=== PATIENT | male | born 1960 | race Caucasian/White ===

== ENCOUNTER 2024-03-18 08:42 | Inpatient (IN) | payer MEDICAID ==
[2024-03-17 18:00] VITALS: BP 133/67; PULSE 120; RESP 25; TEMP 97.5; O2SAT 92
[2024-03-18] VITALS (11 sets, daily range): BP systolic 116–133; BP diastolic 56–67; PULSE 108–129; RESP 18–36; TEMP 97.5–99; O2SAT 2–96
[~2024-03-18] VITALS: Ht 172.7 cm; Wt 100.0 kg
[2024-03-18 09:25] LABS: BASOPHILS % (AUTO) 0.3 % (0-1); EOSINOPHILS % (AUTO) 0 % (0-6); HEMATOCRIT 47.9 % (42.0-52.0); HEMOGLOBIN 15.8 g/dl (14.0-17.9); LYMPHOCYTES # (AUTO) 0.7 X10'3 (1.1-4.8); LYMPHOCYTES % (AUTO) 5.5 % (21-51); MEAN CORPUSCULAR HEMOGLOBIN 30.4 PG (27.0-31.0); MEAN CORPUSCULAR HGB CONC 32.9 g/dL (33.0-36.5); MEAN CORPUSCULAR VOLUME 92.2 FL (78-98); MEAN PLATELET VOLUME 8.3 FL (7.4-10.4); MONOCYTES # (AUTO) 0.2 X10'3 (0-0.9); MONOCYTES % (AUTO) 1.6 % (2-12); NEUTROPHILS % (AUTO) 92.6 % (42-75); PLATELET COUNT 289 X10'3 (140-440); RED BLOOD COUNT 5.19 X10'6 (4.70-6.10); RED CELL DISTRIBUTION WIDTH 13.9 % (11.5-14.5); WHITE BLOOD COUNT 11.9 X10'3 (4.5-11.0)
[2024-03-18 09:40] LABS: TOTAL CARBON DIOXIDE 30.2 MMOL/L (24-32)
[2024-03-18 09:58] LABS: D-DIMER 0.73 MG/L FEU (0-0.50)
[2024-03-18 10:05] LABS: ALANINE AMINOTRANSFERASE 33 U/L (12-78); ALBUMIN 3.3 G/DL (3.4-5.0); ALBUMIN/GLOBULIN RATIO 0.7 (1.1-1.5); ALKALINE PHOSPHATASE 70 IU/L (46-116); ANION GAP 5 (8-16); ASPARTATE AMINO TRANSFERASE 23 U/L (10-37); BILIRUBIN,TOTAL 0.7 MG/DL (0.1-1.0); BLOOD UREA NITROGEN 15 MG/DL (7-18); BUN/CREATININE RATIO 13.6 (10.0-20.0); CALCIUM 8.8 MG/DL (8.5-10.1); CHLORIDE 96 MMOL/L (99-107); GLUCOSE 172 MG/DL (70-104); POTASSIUM 4.7 MMOL/L (3.5-5.1); PRO BRAIN NATRIURETIC PEPTIDE 162 PG/ML (0-125); SODIUM 131 MMOL/L (135-145); TOTAL PROTEIN 8.3 G/DL (6.4-8.2); eCRCL 67 ML/MIN; eGFR 68 ML/MIN
[2024-03-18] MEDS: methylPREDNISolone sod succ 125mg/2ml vial IV ONE (11:10)
[2024-03-18] MEDS ORDERED: ipratropium/albuterol 3ml nebule NEB PRN (13:20)
[2024-03-18] MEDS ORDERED: magnesium Cl slow-release 64mg tablet PO PRN (13:25)
[2024-03-18] MEDS ORDERED: magnesium hydroxide 30ml (MOM) UD suspension PO PRN (13:25)
[2024-03-18] MEDS ORDERED: potassium Cl 40MEQ/1/2NS 520ml 520 ML IV PRN (13:25)
[2024-03-18] MEDS ORDERED: potassium Cl 20 mEq SR tablet PO PRN ×2 (13:25)
[2024-03-18] MEDS ORDERED: mag hydrox/Alum hydrox/simeth 30ml oral suspension PO PRN (13:25)
[2024-03-18] MEDS ORDERED: magnesium sulf-water 2g/50mL 50 ML IV PRN (13:25)
[2024-03-18] MEDS ORDERED: morphine 2 MG/ML inj. syringe IV PRN (13:25)
[2024-03-18] MEDS ORDERED: magnesium sulf-water 4G/100mL 100 ML IV PRN (13:25)
[2024-03-18] MEDS ORDERED: ondansetron/PF 4mg/2ml inj IV PRN (13:25)
[2024-03-18 13:56] LABS: HEMOGLOBIN A1C 6.4 % (4.5-6.2)
[2024-03-18 14:01] LABS: CHOL/HDL RATIO 3.1 (0.00-4.99); CHOLESTEROL 206 MG/DL (0-200); HDL CHOLESTEROL 66 MG/DL (35-60); LDL CHOLESTEROL 126 MG/DL (50-100); THYROID STIMULATING HORMONE 0.41 ulU/ml (0.34-4.50); TRIGLYCERIDES 64 MG/DL (20-135)
[2024-03-18] MEDS: acetaminophen 325mg tablet PO PRN (14:18)
[2024-03-18] MEDS: morphine 2 MG/ML inj. syringe IV PRN (14:18)
[2024-03-18] MEDS ORDERED: IPRA4AER INH (16:28)
[2024-03-18] MEDS ORDERED: MONT-40 PO (16:28)
[2024-03-18] MEDS ORDERED: OMEP20CA16 PO (16:28)
[2024-03-18] MEDS ORDERED: ALBU18HF2 INH (16:28)
[2024-03-18] MEDS ORDERED: LOSA50TA64 PO (16:28)
[2024-03-18] MEDS ORDERED: FLUT1BLS16 INH (16:28)
[2024-03-18] MEDS ORDERED: METO-395 PO (16:28)
[2024-03-18] MEDS ORDERED: HYDR25TA4 PO (16:28)
[2024-03-18] MEDS ORDERED: IBUP-1985 PO (16:28)
[2024-03-18] MEDS ORDERED: ACET-75 PO (16:28)
[2024-03-18] MEDS: VILANTER IH SCH (16:40)
[2024-03-18] MEDS: albuterol 2.5 MG/3 ML nebule NEB SCH (16:40)
[2024-03-18] MEDS: FLUTICASONE IH SCH (16:40)
[2024-03-18] MEDS: UMECLIDIN IH SCH (16:40)
[2024-03-18] MEDS: ipratropium/albuterol 3ml nebule NEB SCH (16:47)
[2024-03-18] MEDS: albuterol 2.5 MG/3 ML nebule NEB ONE (16:59)
[2024-03-18] MEDS ORDERED: non-formulary drug (Albuterol Sulfate (Ventolin Hfa) 2 PUFF) INH SCH (17:00)
[2024-03-18] MEDS ORDERED: dextrose 50%-water 50ml dispensing syringe IV PRN ×2 (18:15)
[2024-03-18] MEDS ORDERED: glucagon, human recombinant 1mg kit SUBCUT PRN (18:15)
[2024-03-18] MEDS ORDERED: DEXTROSE 15 GM of carb/4 tabs (each vial/BOTTLE has 4 tablets) PO PRN ×2 (18:15)
[2024-03-18] MEDS: methylPREDNISolone sod succ 125mg/2ml vial IV SCH (19:54)
[2024-03-18] MEDS: thiamine 100mg/ml 2ml inj. IV SCH (19:57)
[2024-03-18] MEDS: heparin, porcine 5000 units/ml vial SQ SCH (20:00)
[2024-03-18] MEDS: LORazepam 2 mg/ml vial IV PRN (20:01)
[2024-03-18] MEDS: montelukast 10mg tablet PO SCH (20:01)
[2024-03-18] MEDS: K and/or MAG REPLACEMENT MC SCH (20:05)
[2024-03-18] MEDS: INSULIN LISPRO 100 UNIT/ML INSULN.PEN MULTI-DOSE SQ SCH (20:17)
[2024-03-18] MEDS: insulin glargine (Lantus) pen - multi-dose SQ SCH (20:18)
[2024-03-18] MEDS: ipratropium/albuterol 3ml nebule NEB PRN (20:31)
[2024-03-18 22:05] LABS: ABG BASE EXCESS 4.4 mmol/L (-2.0-3.0); ABG HCO3 32.4 mmol/L (21.0-28.0); ABG OXYGEN SATURATION 95.9 % (94.0-98.0); ABG PCO2 (T) 62.9 mmHg (35.0-48.0); ABG PO2 (T) 77.6 mmHg (83.0-108.0); ALLEN'S TEST POSITIVE; FCOHb 1.3 % (0.5-1.5); FLOW 3 L/min; FMetHb 0.3 % (0.0-1.5); FO2Hb 94.4 % (94.0-98.0); MODE NASAL CANNULA; PATIENT TEMPERATURE 37.2; TOTAL HEMOGLOBIN 15.5 G/dl (13.5-17.5)
[2024-03-18 22:13] LABS: ETHANOL < 10 MG/DL (<10)
[2024-03-18] MEDS ORDERED: iohexol 350MG/ML 100ml bottle IV ONE (23:07)
[2024-03-19] VITALS (17 sets, daily range): BP systolic 100–154; BP diastolic 43–78; PULSE 93–114; RESP 12–24; TEMP 97–97.5; O2SAT 88–98
[2024-03-19 04:57] LABS: URINE AMPHETAMINE SCREEN POSITIVE (Neg); URINE BARBITUATE SCREEN NEGATIVE (Neg); URINE BENZODIAZEPINES SCREEN NEGATIVE (Neg); URINE CANNABINOID SCREEN NEGATIVE (Neg); URINE COCAINE SCREEN NEGATIVE (Neg); URINE METHADONE SCREEN NEGATIVE (Neg); URINE OPIATE SCREEN POSITIVE (Neg); URINE PHENCYCLIDINE SCREEN NEGATIVE (Neg)
[2024-03-19 06:14] LABS: BASOPHILS % (AUTO) 0.2 % (0-1); EOSINOPHILS % (AUTO) 0 % (0-6); HEMATOCRIT 44.3 % (42.0-52.0); HEMOGLOBIN 14.5 g/dl (14.0-17.9); LYMPHOCYTES # (AUTO) 0.8 X10'3 (1.1-4.8); LYMPHOCYTES % (AUTO) 4.9 % (21-51); MEAN CORPUSCULAR HEMOGLOBIN 30.2 PG (27.0-31.0); MEAN CORPUSCULAR HGB CONC 32.7 g/dL (33.0-36.5); MEAN CORPUSCULAR VOLUME 92.4 FL (78-98); MEAN PLATELET VOLUME 8.3 FL (7.4-10.4); MONOCYTES # (AUTO) 0.6 X10'3 (0-0.9); MONOCYTES % (AUTO) 3.8 % (2-12); NEUTROPHILS # (AUTO) 15.1 X10'3 (1.8-7.7); NEUTROPHILS % (AUTO) 91.1 % (42-75); PLATELET COUNT 302 X10'3 (140-440); RED CELL DISTRIBUTION WIDTH 13.7 % (11.5-14.5); WHITE BLOOD COUNT 16.6 X10'3 (4.5-11.0)
[2024-03-19 06:15] LABS: INR 1.1 INR; PROTHROMBIN TIME 11.1 SECONDS (9.0-12.0)
[2024-03-19 06:23] LABS: ALANINE AMINOTRANSFERASE 32 U/L (12-78); ALBUMIN/GLOBULIN RATIO 0.7 (1.1-1.5); ALKALINE PHOSPHATASE 66 IU/L (46-116); ANION GAP 5 (8-16); ASPARTATE AMINO TRANSFERASE 13 U/L (10-37); BILIRUBIN,TOTAL 0.6 MG/DL (0.1-1.0); BLOOD UREA NITROGEN 26 MG/DL (7-18); BUN/CREATININE RATIO 19.5 (10.0-20.0); CALCIUM 9.2 MG/DL (8.5-10.1); CHLORIDE 98 MMOL/L (99-107); CREATININE 1.33 MG/DL (0.60-1.10); GLUCOSE 187 MG/DL (70-104); MAGNESIUM 2.3 MG/DL (1.5-2.4); PHOSPHORUS 3.9 MG/DL (2.3-4.5); POTASSIUM 4.9 MMOL/L (3.5-5.1); SODIUM 136 MMOL/L (135-145); TOTAL PROTEIN 7.5 G/DL (6.4-8.2); eCRCL 55 ML/MIN; eGFR 54 ML/MIN
[2024-03-19] MEDS: docusate sod 100mg capsule PO SCH (07:52)
[2024-03-19] MEDS: multivitamins, therapeutics tablet PO SCH (07:53)
[2024-03-19] MEDS: pantoprazole 40mg Tablet.DR PO SCH (07:53)
[2024-03-19] MEDS: metoprolol succinate 25mg (24-HOUR) SR. Tablet PO SCH (07:53)
[2024-03-19] MEDS: losartan 50mg tablet PO SCH (07:53)
[2024-03-19] MEDS: folic acid 1mg/0.2ml inj IV SCH (07:54)
[2024-03-19] MEDS ORDERED: non-formulary drug (Fluticasone/Umeclidin/Vilanter (Trelegy Ellipta 200-62.5-25) 1 PUFFS) INH SCH (08:00)
[2024-03-19] MEDS: furosemide 20 MG/2 ML vial IV ONE (12:39)
[2024-03-19] MEDS: metFORMIN 500mg tablet PO SCH (20:08)
[2024-03-20] VITALS (7 sets, daily range): BP systolic 117–130; BP diastolic 58–73; PULSE 62–104; RESP 14–22; TEMP 96.3–97.5; O2SAT 93–99
[2024-03-20 06:04] LABS: BASOPHILS % (AUTO) 0.2 % (0-1); EOSINOPHILS % (AUTO) 0 % (0-6); HEMATOCRIT 43.1 % (42.0-52.0); HEMOGLOBIN 14.1 g/dl (14.0-17.9); LYMPHOCYTES % (AUTO) 6.8 % (21-51); MEAN CORPUSCULAR HEMOGLOBIN 30.1 PG (27.0-31.0); MEAN CORPUSCULAR HGB CONC 32.7 g/dL (33.0-36.5); MEAN CORPUSCULAR VOLUME 92.3 FL (78-98); MEAN PLATELET VOLUME 8.2 FL (7.4-10.4); MONOCYTES # (AUTO) 0.7 X10'3 (0-0.9); MONOCYTES % (AUTO) 4.8 % (2-12); NEUTROPHILS # (AUTO) 12.8 X10'3 (1.8-7.7); NEUTROPHILS % (AUTO) 88.2 % (42-75); PLATELET COUNT 290 X10'3 (140-440); RED BLOOD COUNT 4.67 X10'6 (4.70-6.10); WHITE BLOOD COUNT 14.5 X10'3 (4.5-11.0)
[2024-03-20 06:12] LABS: PROTHROMBIN TIME 10.8 SECONDS (9.0-12.0)
[2024-03-20 06:23] LABS: ALANINE AMINOTRANSFERASE 24 U/L (12-78); ALBUMIN 2.9 G/DL (3.4-5.0); ALBUMIN/GLOBULIN RATIO 0.7 (1.1-1.5); ALKALINE PHOSPHATASE 55 IU/L (46-116); ANION GAP 1 (8-16); ASPARTATE AMINO TRANSFERASE 13 U/L (10-37); BILIRUBIN,TOTAL 0.5 MG/DL (0.1-1.0); BLOOD UREA NITROGEN 26 MG/DL (7-18); BUN/CREATININE RATIO 26.8 (10.0-20.0); CALCIUM 8.6 MG/DL (8.5-10.1); CHLORIDE 98 MMOL/L (99-107); CREATININE 0.97 MG/DL (0.60-1.10); MAGNESIUM 2.6 MG/DL (1.5-2.4); PHOSPHORUS 3.9 MG/DL (2.3-4.5); POTASSIUM 4.7 MMOL/L (3.5-5.1); SODIUM 135 MMOL/L (135-145); TOTAL CARBON DIOXIDE 35.6 MMOL/L (24-32); TOTAL PROTEIN 7.3 G/DL (6.4-8.2); eCRCL 75 ML/MIN; eGFR 78 ML/MIN
[2024-03-20 07:00] LABS: GLUCOSE 135 MG/DL (70-104)
[2024-03-20] MEDS: furosemide 20 MG/2 ML vial IV SCH (09:35)
[2024-03-20] MEDS ORDERED: LORazepam 2 mg/ml vial IV PRN (13:25)
[2024-03-20] MEDS ORDERED: LORazepam 1 MG tablet PO PRN (13:25)
[2024-03-20] MEDS ORDERED: MULT-1085 PO (14:51)
[2024-03-20] MEDS ORDERED: FURO-150 PO (14:58)
[2024-03-20] MEDS ORDERED: FOLI0.4T6 PO (14:58)
[2024-03-20] MEDS ORDERED: PRED10TA23 PO (14:58)
[2024-03-20] MEDS ORDERED: THIA50TA10 PO (14:58)
[2024-03-20] MEDS ORDERED: METF-1203 PO (15:01)
[2024-03-21 05:23] LABS: HBSAG SCREEN Negative (Negative); HEP B CORE AB, IGM Negative (Negative); HEP B CORE AB, TOT Negative (Negative); HEP B SURF AB Non Reactive (.)
[2024-03-22] MEDS ORDERED: LORazepam 1 MG tablet PO PRN (13:25)
[2024-03-22] MEDS ORDERED: LORazepam 2 mg/ml vial IV PRN (13:25)
== END 2024-03-20 15:10 | disposition home or self-care (01) | DRG 140 ==
LOC: ER 08:43 → ED HOLD 10:54 → EDBEDREQ 15:37 → SUR 3N 17:25
PROVIDERS: ADMIT Internal Medicine; ATTEND Internal Medicine
PROC: B32T1ZZ Computerized Tomography (CT Scan) of Left Pulmonary Artery using Low Osmolar Contrast (ICD-10-PCS; principal; 2024-03-18)
PROC: B3201ZZ Computerized Tomography (CT Scan) of Thoracic Aorta using Low Osmolar Contrast (ICD-10-PCS; 2024-03-18)
PROC: B32S1ZZ Computerized Tomography (CT Scan) of Right Pulmonary Artery using Low Osmolar Contrast (ICD-10-PCS; 2024-03-18)
DX: J44.1 Chronic obstructive pulmonary disease with (acute) exacerbation (principal); J96.01 Acute respiratory failure with hypoxia; R65.10 Systemic inflammatory response syndrome (SIRS) of non-infectious origin without acute organ dysfunction; E11.65 Type 2 diabetes mellitus with hyperglycemia; Z20.822 Contact with and (suspected) exposure to COVID-19; D72.828 Other elevated white blood cell count; E66.811 Obesity, class 1; E87.8 Other disorders of electrolyte and fluid balance, not elsewhere classified; E78.5 Hyperlipidemia, unspecified; F10.939 Alcohol use, unspecified with withdrawal, unspecified; F19.10 Other psychoactive substance abuse, uncomplicated; I10 Essential (primary) hypertension; Z88.1 Allergy status to other antibiotic agents; Z87.891 Personal history of nicotine dependence; Z68.33 Body mass index [BMI] 33.0-33.9, adult
CPT/HCPCS: 36415; 36600; 71045; 71275; 80053; 80061; 80305; 80320; 82803; 82948; 83036; 83735; 83880; 84100; 84145; 84443; 84484; 85018; 85025; 85379; 85610; 86704; 86705; 86706; 87070; 87081; 87340; 87502; 87503; 87811; 93005; 93306; 94640; 94664; 94760; 97161; 97530; 99285; G0378; J1644; J1815; J1940; J2060; J2270; J2919; J3411; J3490; Q9967